=== PATIENT | female | born 1975 | race Caucasian/White ===

== ENCOUNTER 2019-08-26 16:10 | Emergency (ER) | payer OTHER ==
--- NOTE | 2019-08-26 17:07 | EDM.PDOC ---
<Milady Sagastume - Last Filed: 08/26/19 21:25> ED HPI GENERAL MEDICAL PROBLEM - General Chief Complaint: General Stated Complaint: MEDICAL [facility] Time Seen by Provider: 08/26/19 17:03 - Related Data Allergies Allergy/AdvReac Type Severity Reaction Status Date / Time No Known Allergies Allergy Verified 08/26/19 16:11 Home Meds: Home Meds EPINEPHrine [Epipen 2-Josh] 0.3 mg IJ DAILY PRN 30 Days #2 ml 08/26/19 [Rx] Ondansetron [Zofran ODT] 4 mg PO Q6H PRN 2 Days #5 tab.dis 08/26/19 [Rx] hydrOXYzine HCL [Atarax] 25 mg PO Q6H PRN 30 Days #30 tab 08/26/19 [Rx] Course - Re-Assessments/Exams Free Text/Narrative Re-Assessment/Exam: Patient was reassess and feeling much improved. After feeling improved and further questioning about event leading up to ER visit. Patient states 2 weeks ago she [place] her and her went for a run in the [employer] which results in numerous insect bites (deer/horse flies) and 30 minute or less after returning from her run she felt tongue swelling, throat felt tight, nauseated, lightheaded and flush like she may pass out. She laid down for and few hours and symptoms improved. Today she was again near the cabin when her and 2 sons went out 4 wheeling in the [employer], patient is unsure but believes she received numerous bites again. About 1 hr after the ride she started having similar symptoms to last week but much more severe. Patient was alone with children 12 and 15 yr old boys. She became concerned with the tongue swelling and tingling, GI upset with urger to vomiting or have a BM, very lightheaded with difficulty breathing. Patient had a panic attack due to putting her children in a unsafe situation. Son got someone to call EMS and when paramedics arrived patient did not recall majority of events and left like she may have passed out or lost consciousness. Patient recalls getting Benadryl IV with improvement of her tongue swelling and tightness in her throat. Patient is comfortable going home with at this time. I am very concerned that her symptom today represented a sever anaphylactic allergic reaction and prevention is very important with available acute treatment for likely recurrence. 08/26/19 21:28 Departure - Departure Time of Disposition: 21:39 Disposition: Home, Self-Care 01 Clinical Impression: Acute anaphylaxis - Discharge Information Prescriptions: EPINEPHrine [Epipen 2-Josh] 0.3 mg IJ DAILY PRN 30 Days #2 ml PRN Reason: Allergies hydrOXYzine HCL [Atarax] 25 mg PO Q6H PRN 30 Days #30 tab PRN Reason: hives Ondansetron [Zofran ODT] 4 mg PO Q6H PRN 2 Days #5 tab.dis PRN Reason: Vomiting Instructions: Anaphylactic Reaction, Adult, How to Use an Auto-Injector Pen Referrals: PCP,None [Primary Care Provider] - Forms: ED Department Discharge Additional Instructions: 1. Go To Pharmacy to get EPI Pen x 2 to have available for repeat exposure to fly bites which is likely the cause of your symptoms today. 2. EPI is an insurance policy for 10 minutes of time to take Benadryl 50mg chewable or liquid and prompt ER visit for IV access and support. 3. You had what sound like a severe allergic reaction to fly bites, PREVENTION is mora. 4. Deet insect spray liberally when every in outdoor environment (as repeat exposure even if not as severe may cause a severe reaction). 5. Zyrtec 10 mg daily during summer months to help prevent severe allergic reaction if recurrent exposure. 6. Consider purchasing insect repellent clothing or treating outdoor clothing with permethrin (not safe on skin). 7. Call you PCP for ER follow-up to discuss referral to database marketing specialist if continued concerns and safety. <Kinjal Huggins - Last Filed: 08/27/19 07:17> ED HPI GENERAL MEDICAL PROBLEM - General Source of Information: Reports: Patient History Limitations: Reports: No Limitations - History of Present Illness INITIAL COMMENTS - FREE TEXT/NARRATIVE: pt arrived with a history of having an episode 1 week ago where she was tingly all over and feeling sob. Today the same thing happened. She did get nauseated and felt like she was going to vomit. Onset: Today, Sudden, Other ( pt was driving and felt like he was going to pass out. He felt sob and was tingling all over. ) Duration: Minutes: Location: Reports: Generalized Associated Symptoms: Reports: Nausea/Vomiting, Weakness Past Medical History Genitourinary History: Reports: None [employer] History: Reports: - Past Surgical History Head Surgeries/Procedures: Reports: None Female Surgical History: Reports: Section Musculoskeletal Surgical History: Reports: Other (See Below) Other Musculoskeletal Surgeries/Procedures:: left hand, right knee Dermatological Surgical History: Reports: None Social & Family History - Tobacco Use Smoking Status *Q: Never Smoker Second Hand Smoke Exposure: No - Caffeine Use Caffeine Use: Reports: Coffee - Recreational Drug Use Recreational Drug Use: No ED ROS GENERAL - Review of Systems Review Of Systems: See Below Constitutional: Reports: No Symptoms HEENT: Reports: No Symptoms Respiratory: Reports: Shortness of Breath Cardiovascular: Reports: No Symptoms Endocrine: Reports: No Symptoms GI/Abdominal: Reports: Nausea, Vomiting : Reports: No Symptoms Musculoskeletal: Reports: No Symptoms Skin: Reports: No Symptoms Neurological: Reports: No Symptoms Psychiatric: Reports: Anxiety ED EXAM, GENERAL - Physical Exam Exam: See Below Free Text/Narrative:: pt is alert and able to give a history. Pt has had 2 episodes sudden onset of tingling all over and feeling sob. This time she had nausea and vomiting. Exam Limited By: No Limitations General Appearance: Alert, Anxious, Mild Distress, Other (pupils are equal and reactive. ) Ears: Normal TMs Nose: Normal Inspection Throat/Mouth: Normal Inspection Head: Atraumatic Neck: Normal Inspection Respiratory/Chest: No Respiratory Distress, Other (pt had good o2 sats. ) Cardiovascular: Regular Rate, Rhythm GI/Abdominal: Soft, Non-Tender (Female) Exam: Deferred Rectal (Female) Exam: Deferred Back Exam: Normal Inspection Extremities: Normal Inspection Neurological: Alert, Oriented, Normal Cognition, Other (pt seemes like she is having problems remembering things. ) Psychiatric: Anxious Course - Vital Signs Last Recorded V/S: Last Vital Signs Temp 36.8 C 08/26/19 16:16 Pulse 61 08/26/19 21:15 Resp 11 L 08/26/19 21:15 BP 125/78 08/26/19 21:15 Pulse Ox 99 08/26/19 21:15 - Orders/Labs/Meds Orders: Active Orders 24 hr Category Date Time Status EKG Documentation Completion [RC] ASDIRECTED Care 08/26/19 17:01 Active EKG 12 Lead [EK] Routine Ther 08/26/19 17:01 Ordered Labs: Laboratory Tests 08/26/19 08/26/19 08/26/19 Range/Units 17:00 17:12 17:12 WBC 7.0 (4.5-11.0) K/uL RBC 4.81 (3.30-5.50) M/uL Hgb 14.7 (12.0-15.0) g/dL Hct 44.9 (36.0-48.0) % MCV 93 (80-98) fL MCH 31 (27-31) pg MCHC 33 (32-36) % Plt Count 206 (150-400) K/uL Neut % (Auto) 75 H (36-66) % Lymph % (Auto) 18 L (24-44) % Rhea % (Auto) 6 (2-6) % Eos % (Auto) 0 L (2-4) % Baso % (Auto) 0 (0-1) % Puncture Site Rt radial ABG pH 7.461 H (7.350-7.450) ABG pCO2 33.7 L (35.0-42.0) mmHg ABG pO2 84.2 (75.0-100.0) mmHg ABG HCO3 23.7 (22.0-26.0) mmol/L ABG Total CO2 20.3 L (21.0-25.0) mmol/L ABG O2 Saturation 96.5 (95.0-98.0) % ABG O2 Content 20.2 (15.0-23.0) %vol ABG Base Excess 1.0 mm/L ABG Hemoglobin 15.1 (12.0-16.0) g/dL ABG Oxyhemoglobin 94.8 % ABG Carboxyhemoglobin 1.0 (0.0-1.6) % ABG Methemoglobin 0.8 % Lorne Test Passed O2 Delivery Device Room air Sodium 141 (140-148) mmol/L Potassium 4.0 (3.6-5.2) mmol/L Chloride 104 (100-108) mmol/L Carbon Dioxide 27 (21-32) mmol/L Anion Gap 9.6 (5.0-14.0) mmol/L BUN 11 (7-18) mg/dL Creatinine 0.9 (0.6-1.0) mg/dL Est Cr Clr Drug Dosing 71.78 mL/min Estimated GFR (MDRD) > 60 (>60) Glucose 108 H (74-106) mg/dL Calcium 9.7 (8.5-10.1) mg/dL Total Bilirubin 0.4 (0.2-1.0) mg/dL AST 19 (15-37) U/L ALT 26 (12-78) U/L Alkaline Phosphatase 63 (46-116) U/L Total Protein 7.3 (6.4-8.2) g/dL Albumin 4.1 (3.4-5.0) g/dL Globulin 3.2 (2.3-3.5) g/dL Albumin/Globulin Ratio 1.3 (1.2-2.2) Urine Color (YELLOW) Urine Appearance (CLEAR) Urine pH (5.0-8.0) Ur Specific [place] (1.008-1.030) Urine Protein (NEGATIVE) mg/dL Urine Glucose (UA) (NEGATIVE) mg/dL Urine Ketones (NEGATIVE) mg/dL Urine Occult Blood (NEGATIVE) Urine Nitrite (NEGATIVE) Urine Bilirubin (NEGATIVE) Urine Urobilinogen (0.2-1.0) EU/dL Ur Leukocyte Esterase (NEGATIVE) Urine RBC (0-5) Urine WBC (0-5) Ur Epithelial Cells Amorphous Sediment Urine Bacteria Urine Mucus Urine Opiates Screen (NEGATIVE) Ur Oxycodone Screen (NEGATIVE) Urine Methadone Screen (NEGATIVE) Ur Propoxyphene Screen (NEGATIVE) Ur Barbiturates Screen (NEGATIVE) Ur Tricyclics Screen (NEGATIVE) Ur Phencyclidine Scrn (NEGATIVE) Ur Amphetamine Screen (NEGATIVE) U Methamphetamines Scrn (NEGATIVE) Urine MDMA Screen (NEGATIVE) U Benzodiazepines Scrn (NEGATIVE) U Cocaine Metab Screen (NEGATIVE) U Marijuana (THC) Screen (NEGATIVE) 08/26/19 08/26/19 Range/Units 17:16 17:16 WBC (4.5-11.0) K/uL RBC (3.30-5.50) M/uL Hgb (12.0-15.0) g/dL Hct (36.0-48.0) % MCV (80-98) fL MCH (27-31) pg MCHC (32-36) % Plt Count (150-400) K/uL Neut % (Auto) (36-66) % Lymph % (Auto) (24-44) % Rhea % (Auto) (2-6) % Eos % (Auto) (2-4) % Baso % (Auto) (0-1) % Puncture Site ABG pH (7.350-7.450) ABG pCO2 (35.0-42.0) mmHg ABG pO2 (75.0-100.0) mmHg ABG HCO3 (22.0-26.0) mmol/L ABG Total CO2 (21.0-25.0) mmol/L ABG O2 Saturation (95.0-98.0) % ABG O2 Content (15.0-23.0) %vol ABG Base Excess mm/L ABG Hemoglobin (12.0-16.0) g/dL ABG Oxyhemoglobin % ABG Carboxyhemoglobin (0.0-1.6) % ABG Methemoglobin % Lorne Test O2 Delivery Device Sodium (140-148) mmol/L Potassium (3.6-5.2) mmol/L Chloride (100-108) mmol/L Carbon Dioxide (21-32) mmol/L Anion Gap (5.0-14.0) mmol/L BUN (7-18) mg/dL Creatinine (0.6-1.0) mg/dL Est Cr Clr Drug Dosing mL/min Estimated GFR (MDRD) (>60) Glucose (74-106) mg/dL Calcium (8.5-10.1) mg/dL Total Bilirubin (0.2-1.0) mg/dL AST (15-37) U/L ALT (12-78) U/L Alkaline Phosphatase (46-116) U/L Total Protein (6.4-8.2) g/dL Albumin (3.4-5.0) g/dL Globulin (2.3-3.5) g/dL Albumin/Globulin Ratio (1.2-2.2) Urine Color Yellow (YELLOW) Urine Appearance Clear (CLEAR) Urine pH 5.5 (5.0-8.0) Ur Specific [place] 1.015 (1.008-1.030) Urine Protein Negative (NEGATIVE) mg/dL Urine Glucose (UA) Negative (NEGATIVE) mg/dL Urine Ketones Negative (NEGATIVE) mg/dL Urine Occult Blood Negative (NEGATIVE) Urine Nitrite Negative (NEGATIVE) Urine Bilirubin Negative (NEGATIVE) Urine Urobilinogen 0.2 (0.2-1.0) EU/dL Ur Leukocyte Esterase Negative (NEGATIVE) Urine RBC Not seen (0-5) Urine WBC 0-5 (0-5) Ur Epithelial Cells Few Amorphous Sediment Rare Urine Bacteria Not seen Urine Mucus Not seen Urine Opiates Screen Negative (NEGATIVE) Ur Oxycodone Screen Negative (NEGATIVE) Urine Methadone Screen Negative (NEGATIVE) Ur Propoxyphene Screen Negative (NEGATIVE) Ur Barbiturates Screen Negative (NEGATIVE) Ur Tricyclics Screen Negative (NEGATIVE) Ur Phencyclidine Scrn Negative (NEGATIVE) Ur Amphetamine Screen Negative (NEGATIVE) U Methamphetamines Scrn Negative (NEGATIVE) Urine MDMA Screen Negative (NEGATIVE) U Benzodiazepines Scrn Negative (NEGATIVE) U Cocaine Metab Screen Negative (NEGATIVE) U Marijuana (THC) Screen Negative (NEGATIVE) Meds: Medications Discontinued Medications Generic Name Dose Route Start Last Admin Trade Name Freq PRN Reason Stop Dose Admin Hydroxyzine HCl 50 mg 08/26/19 20:53 08/26/19 21:49 Atarax PO 08/26/19 20:54 50 mg ONETIME ONE Administration Sodium Chloride 1,000 mls @ 999 mls/hr 08/26/19 19:00 08/26/19 19:02 Normal Saline IV 999 mls/hr ASDIRECTED ARAMIS Administration Ondansetron HCl 4 mg 08/26/19 18:54 08/26/19 19:02 Zofran IVPUSH 08/26/19 18:55 4 mg ONETIME ONE Administration - Re-Assessments/Exams Free Text/Narrative Re-Assessment/Exam: 08/26/19 18:26 lab work shows possible hyperventilation. Her other labs appear normal. She has a normal drug screen. 08/26/19 18:55 pt was able to give further history and she felt that she had abdomanal cramping first and then she may have hyperventilated. She still his nauseated znd is having slight cramping. Sepsis Event Note (ED) - Evaluation Sepsis Screening Result: No Definite Risk - Focused Exam Vital Signs: Vital Signs Pulse Resp BP Pulse Ox 08/26/19 21:15 61 11 L 125/78 99 08/26/19 19:51 70 11 L 134/71 98 08/26/19 19:22 67 11 L 126/70 100 - My Orders Last 24 Hours: My Active Orders 08/26/19 17:01 EKG Documentation Completion [RC] ASDIRECTED EKG 12 Lead [EK] Routine - Assessment/Plan Last 24 Hours: My Active Orders 08/26/19 17:01 EKG Documentation Completion [RC] ASDIRECTED EKG 12 Lead [EK] Routine
--- NOTE | 2019-08-26 18:46 | CRLCT ---
INDICATION: Change in mental status COMPARISON: None TECHNIQUE: CT examination of the head was performed as axial sections without intravenous contrast. Images were obtained from the vertex of the skull through the skull base. Please note that all CT scans at this facility use dose modulation, iterative reconstruction, and/or weight-based dosing when appropriate to reduce radiation dose to as low as reasonably achievable. FINDINGS: The brain shows no sign of mass lesion, mass effect, hemorrhage, or edema. The ventricles and sulci are normal in appearance for the patient`s age. The visualized portions of the orbits are normal in appearance. The osseous structures are normal in their appearance with no sign of abnormality in the skull base or calvarium. IMPRESSION: Normal unenhanced head CT. Please note that all CT scans at this facility use dose modulation, iterative reconstruction, and/or weight-based dosing when appropriate to reduce radiation dose to as low as reasonably achievable. Dictated by Fernando Ladd MD @ Aug 26 2019 6:43PM Signed by Dr. Fernando Ladd @ Aug 26 2019 6:45PM
[2019-08-26] MEDS ORDERED: Ondansetron 4 MG/2 ML SDV IVPUSH ONE (18:54)
[2019-08-26] MEDS ORDERED: Sodium Chloride 0.9% 1,000 ML IV SCH (19:00)
[2019-08-26] MEDS ORDERED: hydrOXYzine HCl 25 MG Tab PO ONE (20:53)
== END 2019-08-26 22:00 | disposition home or self-care (01) ==
LOC: JP.ED 16:10
DX: T78.2XXA Anaphylactic shock, unspecified, initial encounter (principal)
CPT/HCPCS: 36415; 36600; 70450; 80053; 80305; 81001; 82803; 85025; 93005; 96361; 96374; 99285; A9270; J2405; J7030